=== PATIENT | male | born 1990 | race Hispanic/Latino ===

== ENCOUNTER 2017-09-05 18:48 | Emergency (ER) | payer SELFPAY ==
[2017-09-05] MEDS ORDERED: Dexamethasone 4 mg/ml Vial ONE (21:47)
[2017-09-05] MEDS ORDERED: Mag-Al 1200 mg/1200 mg/30 ML UDCUP ONE (21:47)
[2017-09-05] MEDS ORDERED: Lidocaine Viscous Sol 2% 15 ml UD Cup ONE (21:47)
== END 2017-09-05 21:55 | disposition home or self-care (01) ==
LOC: ERS 18:48
DX: K12.1 Other forms of stomatitis (principal)
CPT/HCPCS: 87081; 87430; 99283; J1100